=== PATIENT | male | born 1995 | race Caucasian/White ===

== ENCOUNTER 2019-02-09 02:35 | Observation (INO) | payer OTHER ==
--- NOTE | 2019-02-09 02:47 | EDPHY ---
H & P Stated Complaint: syncope, head lac Time Seen by Provider: 02/09/19 02:46 HPI/ROS: HPI CHIEF COMPLAINT: Syncope, head laceration, head injury HISTORY OF PRESENT ILLNESS: This patient is a 23-year-old male, arrives to the emergency room by private vehicle, with his g/f at bedside, he got up this evening to use the bathroom and had a syncopal episode in the bathroom with head strike. He believes his head hit the hard ground, but does not remember,he had a Positive LOC. He now arrives to the emergency room perseverating and has an obvious concussion. He cannot tell me the year, he believes it is 2018, he is unsure of who the president is, he is unsure of what job he does, he denies any alcohol tonight, however his girlfriend at bedside reports that he had a beer in 2 glasses of wine earlier, he does not recall. That was around 10:00 p.m. He has been in bed for approximately 3-4 hours. Patient states he got up out of bed to use the bathroom and does not recall what happened next. Does have a history of getting lightheaded when he gets up quickly. The patient arrives and is alert and orient x1 at this time. He has a left occiput hematoma. He denies any chest pain or shortness of breath. He is confused. Past Medical History: Denies significant medical history Past Surgical History: Denies significant surgical history Social History: Alcohol this evening, occasional marijuana use, denies other illicit drugs. No tobacco. Student. Family History: Noncontributory Of note girlfriend is at bedside who provide some history as the patient is confused. ROS REVIEW OF SYSTEMS: Limited due to mental state. Confused, concussed. Exam Constitutional triage nursing summary reviewed, vital signs reviewed, awake/ alert. Eyes normal conjunctivae and sclera, EOMI, PERRLA. HENT head/neck left occiput hematoma, no midline cervical spine pain or step- offs or crepitus, moist mucus membranes, no epistaxis, neck supple/ no meningismus, no raccoon eyes. Respiratory clear to auscultation bilaterally, normal breath sounds, no respiratory distress, no wheezing. Cardiovascular rate normal, regular rhythm, no murmur, no edema, distal pulses normal. Gastrointestinal soft, non-tender, no rebound, no guarding, normal bowel sounds, no distension, no pulsatile mass. Genitourinary no CVA tenderness. Musculoskeletal no midline vertebral tenderness, full range of motion, no calf swelling, no tenderness of extremities, no meningismus, good pulses, neurovascularly intact. Skin laceration left occiput 3 cm vertical. Neurologic alert and orient x1, moves all 4 extremities equally, motor intact , sensory intact, CN II-XII intact, normal cerebellar, normal vision, normal speech. Psychiatric normal mood/affect. Heme/Lymph/Immune no lymphadenopathy. Differential Diagnosis: Includes but is not limited to in a particular order closed-head injury, concussion, intracranial bleed, subdural, epidural, traumatic subarachnoid, skull fracture Medical Decision Making: Plan for this patient for syncope and head injury IV establishment IV fluid bolus, EKG, troponin, CT scan head without contrast CT cervical spine without contrast, chest x-ray, labs, re-eval Re-evaluation: EKG interpretation by me on record in [facility] system. Impression time of EKG 3:05 a.m., sinus rhythm rate of 73 without any signs of acute ischemia or cardiac arrhythmia. No WPW or Brugada. No prolonged intervals. CT scan head without contrast and CT cervical spine without contrast: No acute intracranial abnormality faxed me by direct [facility] at 3:[address] cervical spine no acute cervical spine abnormality faxed to me by [facility] 3:51 a.m. 0417: Patient re-evaluated this time he is perseverating. Still confused. Unable to know the date, or the day. Patient continues to ask his girlfriend at bedside over and over Again what happened. Given patient's head injury plan for hospital admission. Will consult surgery for admission for closed-head injury/concussion. 0421: Patient's head wounds were clean. No visible lacerations. Does have a left occiput scalp hematoma and a very small right scalp hematoma occiput. Given the patient's perseverating, confused, concussion like symptoms plan for observation today in the hospital under the trauma service Dr. Mackey. 0423AM: Case discussed with Dr. Mackey, agrees to admit. Troponin negative. EKG nonischemic without any signs of cardiac arrhythmia. No evidence of WPW or Brugada. Plan for admission for concussion. Patient updated girlfriend at bedside agree for admission. Source: Patient - Personal History Current Tetanus Diphtheria and Acellular Pertussis (TDAP): Yes - Medical/Surgical History Hx Asthma: No Hx Chronic Respiratory Disease: No Hx Diabetes: No Hx Cardiac Disease: No Hx Renal Disease: No Hx Cirrhosis: No Hx Alcoholism: No Hx HIV/AIDS: No Hx Splenectomy or Spleen Trauma: No Other PMH: hypotension - Social History Smoking Status: Never smoked Constitutional: Initial Vital Signs Temperature (C) 36.6 C 02/09/19 02:39 Heart Rate 76 02/09/19 02:39 Respiratory Rate 20 02/09/19 02:39 Blood Pressure 139/69 H 02/09/19 02:39 O2 Sat (%) 99 02/09/19 02:39 O2 Delivery Mode Room Air Allergies/Adverse Reactions: No Known Allergies Allergy (Unverified 02/09/19 02:39) Home Medications: Medication Instructions Recorded NK [No Known Home Meds] 02/09/19 Medical Decision Making - Data Points Laboratory Results: Laboratory Results 02/09/19 03:02 02/09/19 03:02 Medications Given: Discontinued Medications Acetaminophen (Tylenol) 325 - 650 mg PO Q4HRS PRN PRN Reason: Pain, Mild Able to Take PO Stop: 08/08/19 08:36 Last Admin: 02/09/19 09:29 Dose: 650 mg Sodium Chloride (Ns) 1,000 mls @ 0 mls/hr IV ONCE ONE; Wide Open PRN Reason: Protocol Stop: 02/09/19 02:54 Last Admin: 02/09/19 03:12 Dose: 1,000 mls Ondansetron HCl (Zofran) 4 mg IVP EDNOW ONE Stop: 02/09/19 05:02 Last Admin: 02/09/19 05:02 Dose: 4 mg Point of Care Test Results: Chemistry 02/09/19 03:06 POC Troponin I 0.04 ng/mL ng/mL (0.00-0.08) Departure - Departure Disposition: [facility] Inpatient Acute Clinical Impression: Concussion Qualifiers: Encounter type: initial encounter Loss of consciousness presence/duration: with LOC of 30 min or less Qualified Code(s): S06.0X1A - Concussion with loss of consciousness of 30 minutes or less, initial encounter Head injury Qualifiers: Encounter type: initial encounter Qualified Code(s): S09.90XA - Unspecified injury of head, initial encounter Scalp hematoma Qualifiers: Encounter type: initial encounter Qualified Code(s): S00.03XA - Contusion of scalp, initial encounter Condition: Serious
[2019-02-09] MEDS ORDERED: NS 1,000 ML IV ONE (02:53)
[2019-02-09 03:12] LABS: PLATELET COUNT 194 10^3/uL (150-400)
[2019-02-09 03:29] LABS: INR 1.04 (0.83-1.16); PROTIME(PATIENT) 13.2 SEC (12.0-15.0)
[2019-02-09] MEDS ORDERED: ONDANSETRON 4 MG/2 ML VIAL IVP ONE (05:01)
[2019-02-09] MEDS ORDERED: ONDANSETRON 4 MG/2 ML VIAL ONE (05:01)
--- NOTE | 2019-02-09 07:23 | CPEKG ---
Test Reason : OPEN Blood Pressure : / mmHG Vent. Rate : 073 BPM Atrial Rate : 074 BPM P-R Int : 191 ms QRS Dur : 110 ms QT Int : 405 ms P-R-T Axes : 071 092 037 degrees QTc Int : 447 ms Sinus rhythm Borderline right axis deviation Confirmed by Chris Silvestre ([id number]) on 02/09/2019 7:22:39 AM Referred By: Chris Silvestre Confirmed By:Chris Silvestre
--- NOTE | 2019-02-09 08:29 | GHP ---
[f rep st] PREOP HISTORY AND PHYSICAL DATE OF ADMISSION: 02/09/2019 HISTORY OF PRESENT ILLNESS: A 23-year-old male who was brought to the ER after falling out of bed an d hitting his head on the floor. He was brought to the ER, was confused and perseverating. He had n o focal findings. CT of his head and neck were negative. However, after several hours in the ER, he was still confused and perseverating. He is admitted for observation. He complains of no other sarah ns or problems and he has no memory of the accident. He apparently was drinking mildly according to his girlfriend, but his blood alcohol was quite low. PAST MEDICAL HISTORY: Includes tonsillectomy. REVIEW OF SYSTEMS: Negative on a full 10-point review, although his responses are somewhat unreliabl e. Denies any major medical problems. SOCIAL HISTORY: Non-smoking. FAMILY HISTORY: Noncontributory. PHYSICAL EXAMINATION: GENERAL: An alert 23-year-old male who is in no acute distress. HEAD and NEC K: Reveals a small cephalohematoma in the posterior occiput. His pupils were equal. EOMs are intac t. He is nonicteric. NECK: Supple, nontender, with full range of motion. No adenopathy. CHEST: Clear and symmetric with no rib tenderness or sternal tenderness. CARDIAC: Reveals a regular rhythm without murmurs. ABDOMEN: Soft and nontender. EXTREMITIES: Reveal full range of motion, full pul ses. BACK: Nontender with no obvious deformities. NEUROLOGIC: Physiologic and symmetric except fo r his slight confusion. IMPRESSION: Closed head injury with small cephalohematoma. PLAN: Admit for observation. He has no history of cardiac abnormalities or other etiologies for his fall. /[id number]/MODL
[2019-02-09] MEDS ORDERED: HYDROCODONE/APAP 5/325 TAB PO PRN (08:37)
[2019-02-09] MEDS ORDERED: ONDANSETRON DISINTEGRATING 4 MG TAB PO PRN (08:37)
[2019-02-09] MEDS ORDERED: ACETAMINOPHEN 325 MG TAB PO PRN (08:37)
[2019-02-09 11:49] VITALS: BP 135/56
--- NOTE | 2019-02-09 13:12 | TRAUMAPNT ---
Trauma Tertiary Progress Note New Findings: No new findings Assessment/Plan: 23 yo fell out of bed amnestic to events Scalp laceration Post concussive AVSS RRR CTA Scalp lac not bleeding No neurologic deficits D/C today with head sheet F/u PRN Objective: Vital Signs Temp Pulse Resp BP Pulse Ox 37.2 C 83 16 135/56 H 95 02/09/19 11:48 02/09/19 11:48 02/09/19 11:48 02/09/19 11:48 02/09/19 11:48 02/08/19 02/09/19 02/10/19 05:59 05:59 05:59 Intake Total 1500 Output Total 650 Balance 850 PT 13.2 SEC (12.0-15.0) 02/09/19 03:02 INR 1.04 (0.83-1.16) 02/09/19 03:02
[2019-02-09] MEDS ORDERED: IBUPROFEN 600 MG TAB PO SCH (14:00)
--- NOTE | 2019-02-09 14:03 | ASMTLACE ---
JOSE Length of stay for Answers: 1 day current admission Acuity / Level of Answers: No Care: Did the patient have an inpatient admission? # of Emergency department Answers: 1-2 visits in the last 6 months Score: 2 Date Signed: 02/09/2019 02:03 PM Electronically Signed By:IAN Pulliam
--- NOTE | 2019-02-09 14:08 | ASMTCMCOM ---
CM Note CM Note Notes: Pt medically stable for d/c home with girlfriend support. PT/OT/[facility] clear pt for home. Pt girlfriend to transport pt home. Pt does not have a PCP, he was provided a list of [facility] clinics to establish care. No CM d/c needs identified. Date Signed: 02/09/2019 02:07 PM Electronically Signed By:IAN Pulliam
--- NOTE | 2019-02-09 16:45 | PDDCSUM ---
Discharge Summary Discharge Summary: Date of admission: 02/09/2019 Date of discharge: 02/09/2019 Principal diagnosis concussion secondary diagnosis scalp laceration Patient was brought in to the hospital following an unwitnessed fall. He crawled into his girlfriend bedroom bleeding from his scalp. He was administered to the event. He was brought to the emergency room and evaluated. He was found to have a concussion and admitted for evaluation and management. He was evaluated by speech, OT and PT. No neurologic deficits were noted. CT scan of the head and neck were negative for acute trauma Over the course of the day he had a mild headache but otherwise was able to tolerated diet without neurologic deficit the patient was discharged to home with his girlfriend as an adult guardian. He was given strict instructions to return for any additional symptoms including worsening neurologic symptoms, inability to be awakened. Nausea vomiting or worsening headache. All questions were answered prior to discharge. The patient has no areas that were noted. Follow up with [facility].
== END 2019-02-09 14:49 | disposition home or self-care (01) ==
LOC: F3N 05:31
PROVIDERS: ADMIT Surgery; ATTEND Surgery
DX: S06.0X9A Concussion with loss of consciousness of unspecified duration, initial encounter (principal); S01.01XA Laceration without foreign body of scalp, initial encounter; W01.10XA Fall on same level from slipping, tripping and stumbling with subsequent striking against unspecified object, initial encounter; Y92.002 Bathroom of unspecified non-institutional (private) residence as the place of occurrence of the external cause; E86.9 Volume depletion, unspecified
CPT/HCPCS: 70450; 71045; 72125; 92523; 93005; 96374; 97161; 97165; 99285; G0378; 84484-ER; G0480; J2405